=== PATIENT | male | born 1980 | race Caucasian/White ===

== ENCOUNTER → 2017-08-23 | Outpatient (CLI) | payer OTHER ==
--- NOTE | 2017-08-24 12:33 | CT ---
EXAMINATION TYPE: CT abdomen pelvis w con DATE OF EXAM: 08/23/2017 COMPARISON: NONE HISTORY: Right groin pain x 4 weeks, painful when coughing and during intercourse. CT DLP: 397.1 mGycm Automated exposure control for dose reduction was used. TECHNIQUE: Helical acquisition of images from the lung bases through the pelvis have been completed. CONTRAST: Performed with Oral Contrast and with IV Contrast, patient injected with 100 mL of Isovue M300. FINDINGS: There may be a small hiatal hernia LUNG BASES: No significant abnormality is appreciated. AORTA: No significant abnormality is appreciated. LIVER/GB: Low dense focus in the posterior right lobe towards the diaphragm measures 4 cm and shows n odular peripheral enhancement compatible with hemangioma, gallbladder thought to be contracted. 7 mm low dense focus in the lower aspect of the right lobe of the liver is indeterminate. PANCREAS: No significant abnormality is seen. SPLEEN: No significant abnormality is seen. ADRENALS: No significant abnormality is seen. KIDNEYS: No significant abnormality is seen. REPRODUCTIVE ORGANS: No significant abnormality is seen BOWEL: No significant abnormality is seen. FREE AIR: No Free Air visible. ASCITES: None visible. PELVIC ADENOPATHY: None visualized. RETROPERITONEAL ADENOPATHY: No Retroperitoneal Adenopathy visible. URINARY BLADDER: No significant abnormality is seen. OSSEOUS STRUCTURES: Bilateral spondylolysis present at L5. Anterolisthesis grade 1 L5-S1 with associ ated loss of disc height, vacuum phenomenon, spondylosis. Suspect a posterior disc bulge at L4-5 caus ing anterolateral mass effect on the thecal sac IMPRESSION: SPONDYLOLYSIS, SPINAL LISTHESIS, DEGENERATIVE DISC DISEASE. PROBABLE HEMANGIOMA WITHIN THE LIVER. Add itional findings above.
== END | disposition home or self-care (01) ==
LOC: RADCTMAIN 17:26 → MERGE 19:00
PROVIDERS: ATTEND Surgery
DX: K76.89 Other specified diseases of liver (principal); K43.9 Ventral hernia without obstruction or gangrene
CPT/HCPCS: 74177; Q9967